=== PATIENT | female | born 1960 | race African-American/Black ===

== ENCOUNTER 2019-05-17 07:33 | Emergency (ER) | payer BC, SELFPAY ==
--- NOTE | ~2019-05-17 | XR_ITS ---
EXAMINATION: XR femur RT min 2V EXAM DATE: 05/17/2019 11:55 INDICATION: Fall, right thigh, upper leg pain. TECHNIQUE: Right femur frontal and lateral projections of the proximal aspect, frontal and lateral pr ojections of the lower aspect for review. Correlation is made to right hip exam same date. FINDINGS: There are no acute right femoral fractures or dislocations identified. There is no subcuta neous gas. The soft tissue is unremarkable. There are no radiopaque foreign bodies. IMPRESSION: No acute osseous findings. Reviewed, dictated and finalized at location A. 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
--- NOTE | ~2019-05-17 | XR_ITS ---
EXAMINATION: XR hip RT min 3V w AP pelvis DATE: 05/17/2019 08:26 INDICATION: Right hip pain. Fall. TECHNIQUE: An anteroposterior view of the pelvis and 3 views of right hip were obtained. COMPARISON: None. FINDINGS: Bone alignment is normal. No fracture. The hip joint spaces are normal. Osteitis pubis is n oted. There is at least mild lumbar spondylosis. IMPRESSION: 1. No fracture. Reviewed, dictated and finalized at location A. 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 No fracture.
--- NOTE | 2019-05-17 08:03 | ED.FALL ---
HPI - Fall General Chief Complaint: Fall Stated Complaint: Fall in parking lot Time Seen by Provider: 05/17/19 07:50 Source: patient and RN notes reviewed Mode of arrival: ambulatory Limitations: no limitations History of Present Illness HPI Narrative: Pt is a 58 y/o female presenting to the ED c/o thigh pain secondary to fall. Pt reports she fell about 15 minutes ago injuring her rt thigh. Pt notes her pain is currently a 2/10 on the pain scale at rest but reports it is worsened with ambulation. Pt states she is unsure of how she fell, stating she could have tripped. Pt notes she experienced lightheadedness, SOB that has since resolved, and nausea after the fall, but denies headache, CP, neck pain, or back pain. Pt states she did not hit her head during the fall or experience LOC. Pt notes she is still able to ambulate mildly. Onset (ago): minute(s) (15) Fall from: standing Loss of consciousness: none Location of injury - extremities: Right: lower leg (Thigh) Associated symptoms (after fall): shortness of breath (Resolved), lightheaded and other (Nausea) Related Data Allergies Allergy/AdvReac Type Severity Reaction Status Date / Time No Known Allergies Allergy Verified 05/17/19 08:10 Review of Systems Review of Systems: Narrative: Respiratory: Positive for dyspnea (resolved). Cardiovascular: Negative for chest pain. Gastrointestinal: Positive for nausea. Musculoskeletal: Positive for rt thigh pain. Negative for neck pain or back pain. Neurological: Positive for lightheadedness. Negative for loss of conciousness. All systems reviewed & are unremarkable except as noted in HPI and below PMFSH Past Medical History Medical History No significant past medical history Surgical History Surgical History No significant past surgical history Social History Social History Smoking status: Unknown if ever smoked Gender identity (if verbalized by the patient): Female Exam Narrative: Exam Narrative: Constitutional: Appears well-developed. No distress. Nose: Nose normal. Eyes: Conjunctiva are normal. Neck: Normal range of motion. Neck supple. Pulmonary/Chest: Effort normal. Musculoskeletal: Tenderness to lateral aspect of rt hip. Neurological: Alert and oriented to person, place, and time. Skin: Skin is warm. No pallor. Abrasions to both knees. Psychiatric: Normal mood and affect. Course Reevaluation(s) Reevaluation #1: Rechecked patient. Able to walk with slight limp. Lightheadedness has resolved. Feels comfortable to go home. She refused Tdap. Date: 05/17/19 Time: 12:48 Vital Signs Vital signs: Vital Signs Temperature 36.4 C 05/17/19 08:07 Pulse Rate 67 05/17/19 08:07 Respiratory Rate 14 05/17/19 08:07 Blood Pressure 108/71 05/17/19 08:07 Pulse Oximetry 100 05/17/19 08:07 Temperature 36.4 C 05/17/19 08:07 Pulse Rate 70 05/17/19 13:16 Respiratory Rate 16 05/17/19 13:16 Blood Pressure 133/76 05/17/19 13:16 Pulse Oximetry 98 05/17/19 13:16 MDM - Fall Lab Data Result diagrams: 05/17/19 08:57 05/17/19 08:57 Labs: Lab Results 05/17/19 05/17/19 05/17/19 Range/Units 08:57 08:57 12:11 WBC 11.5 H (4.5-10.0) K/mm3 RBC 5.23 (4.2-5.4) M/mm3 Hgb 14.1 (12.0-15.0) g/dL Hct 44.4 (37.0-47.0) % MCV 84.9 (80-100) fl MCH 27.0 (26-34) pg MCHC 31.8 L (32-36) g/dl RDW 13.5 (11.5-14.5) % Plt Count 252 (150-375) k/mm3 MPV 9.8 (7.4-10.4) fl Immature Gran % (Auto) 0.2 (0-0.5) % Neut % (Auto) 68.2 (45.5-73.1) % Lymph % (Auto) 23.2 (18.3-44.2) % Rankin % (Auto) 7.7 (2.6-8.5) % Eos % (Auto) 0.0 (0-4.4) % Baso % (Auto) 0.7 (0.2-1.2) % Lymph # (Auto) 2.66 (0.9-3.2) K/mm3 Rankin # (Auto) 0.9 H (0.1-0.6) K/mm3 Eos # (Auto) 0.0 (0-0.3) K/mm3
[2019-05-17 08:07] VITALS: BP 108/71; PULSE 67; RESP 14; TEMP 36.4; O2SAT 100
--- NOTE | 2019-05-17 08:11 | ECG_ITS ---
Measurements Intervals [place] Rate: 63 P: 42 FL: 193 QRS: 22 QRSD: 87 T: -5 QT: 405 QTc: 416 Interpretive Statements SINUS RHYTHM RSR' IN V1 OR V2, CONSIDER RIGHT VENTRICULAR HYPERTROPHY OR RIGHT VCD BORDERLINE T WAVE ABNORMALITY- ANTEROLATERAL LEADS BASELINE WANDER- I, II, AVR, AVL BORDERLINE ECG Electronically Signed On 05-17-2019 8:54:23 CONTENT ARCHITECT by Patrice Harden D.O.
[2019-05-17 09:05] LABS: Basophils Absolute Auto 0.1 K/mm3 (0.0-0.1); Basophils Percent Auto 0.7 % (0.2-1.2); Hematocrit 44.4 % (37.0-47.0); Hemoglobin 14.1 g/dL (12.0-15.0); Immature Granulocyte Absolute 0.02 K/mm3 (0.00-0.031); Immature Granulocyte Percent A 0.2 % (0-0.5); Lymphocytes Absolute Auto 2.66 K/mm3 (0.9-3.2); Lymphocytes Percent Auto 23.2 % (18.3-44.2); Mean Corpuscular HGB Conc 31.8 g/dl (32-36); Mean Corpuscular Volume 84.9 fl (80-100); Mean Platelet Volume 9.8 fl (7.4-10.4); Monocytes Absolute Auto 0.9 K/mm3 (0.1-0.6); Monocytes Percent Auto 7.7 % (2.6-8.5); Neutrophils Absolute Auto 7.8 K/mm3 (1.3-6.7); Neutrophils Percent Auto 68.2 % (45.5-73.1); Platelet Count Result 252 k/mm3 (150-375); Red Blood Count 5.23 M/mm3 (4.2-5.4); Red Cell Distribution Width 13.5 % (11.5-14.5); White Blood Count 11.5 K/mm3 (4.5-10.0)
[2019-05-17 09:17] LABS: Blood Urea Nitrogen 14 mg/dL (7-17); Calcium 9.6 mg/dL (8.4-10.2); Carbon Dioxide 29 mmol/L (22-30); Chloride 101 mmol/L (98-107); Estimated Glomerular Filt Rate > 60; Glucose 95 mg/dL (65-105); Potassium 4.7 mmol/L (3.4-5.0); Sodium 139 mmol/L (137-145)
[2019-05-17 09:28] LABS: Troponin I < 0.012 ng/mL (0.000-0.034)
[2019-05-17 12:24] VITALS: BP 135/76; PULSE 73; RESP 16; O2SAT 98
[2019-05-17 12:41] LABS: Troponin I < 0.012 ng/mL (0.000-0.034)
[2019-05-17 13:16] VITALS: BP 133/76; PULSE 70; RESP 16; O2SAT 98
== END 2019-05-17 13:17 | disposition home or self-care (01) ==
PROVIDERS: Emergency Provider Emergency Medicine
DX: S70.01XA Contusion of right hip, initial encounter (principal); S80.212A Abrasion, left knee, initial encounter; S80.211A Abrasion, right knee, initial encounter; R42 Dizziness and giddiness; W19.XXXA Unspecified fall, initial encounter
CPT/HCPCS: 36415; 73502; 73552; 80048; 84484; 85025; 93005; 99284